=== PATIENT | male | born 1995 | race Caucasian/White ===

== ENCOUNTER 2017-03-23 13:22 | Emergency (ER) | payer SELFPAY ==
[~2017-03-23] VITALS: Ht 188 cm; Wt 82.0 kg
[~2017-03-23 13:22] MED LIST: AMOXICILLIN500 MG PO; ATIVAN0.5 MG PO; NAPROSYN500 MG PO; NO HOME MEDS; ZOFRAN ODT4 MG OR
[2017-03-23] MEDS ORDERED: BACTRIM DS1 TAB PO (14:15)
[2017-03-23] MEDS ORDERED: FLONASE AL50 MCG/ACT (14:15)
[2017-03-23] MEDS ORDERED: AFRIN 12 HOUR0.05 % (14:15)
[2017-03-23 14:25] VITALS: BP 121/82
== END 2017-03-23 14:25 | disposition home or self-care (01) | DRG 153 ==
LOC: ED 13:22
DX: J01.90 Acute sinusitis, unspecified (principal); F41.0 Panic disorder [episodic paroxysmal anxiety]; F17.290 Nicotine dependence, other tobacco product, uncomplicated

== ENCOUNTER 2018-08-22 09:48 | Emergency (ER) | payer SELFPAY ==
[~2018-08-22] VITALS: Ht 188 cm; Wt 75.0 kg
[~2018-08-22 09:48] MED LIST changes: +AFRIN 12 HOUR0.05 %; +BACTRIM DS1 TAB PO; +FLONASE AL50 MCG/ACT
[2018-08-22] MEDS ORDERED: MOTRIN400 MG PO ×2 (11:51→12:03)
[2018-08-22] MEDS ORDERED: HYDROCO/APAP1 TA9 PO (11:51)
[2018-08-22 12:00] VITALS: BP 110/64
== END 2018-08-22 12:00 | disposition home or self-care (01) | DRG 563 ==
LOC: ED 09:48
PROC: 2W3RX1Z Immobilization of Left Lower Leg using Splint (ICD-10-PCS; principal; 2018-08-22)
DX: S82.65XA Nondisplaced fracture of lateral malleolus of left fibula, initial encounter for closed fracture (principal); W13.3XXA Fall through floor, initial encounter; Y93.89 Activity, other specified; Y92.009 Unspecified place in unspecified non-institutional (private) residence as the place of occurrence of the external cause

== ENCOUNTER 2019-02-02 21:51 | Emergency (ER) | payer SELFPAY ==
[~2019-02-02] VITALS: Ht 188 cm; Wt 85.0 kg
[~2019-02-02 21:51] MED LIST changes: +HYDROCO/APAP1 TA9 PO; +MOTRIN400 MG PO
[2019-02-02 22:37] LABS: HEMOGLOBIN 14.7 g/dl (14.0-18.0); IMMATURE GRANULOCYTES 0.5 % (0.0-5.0); MEAN CORPUSCULAR HGB 30.2 pG CALC (26.0-32.0); NEUT# 9.05 thou/uL (1.82-7.42); RED BLOOD COUNT 4.86 mill/uL (4.70-6.10); RED CELL DISTRI WIDTH 12.4 % (11.5-15.5)
[2019-02-02 22:41] LABS: HEMATOCRIT 43.2 % (39.0-50.0); MEAN CELL VOLUME 88.9 fL CALC (80.0-100.0)
[2019-02-02 23:00] LABS: ANION GAP 18 (6-22 (CALC)); BILIRUBIN, TOTAL 0.9 mg/dL (0.0-1.4); BUN 12 mg/dL (9-20); BUN/CREATININE RATIO 15 (12-20 (CALC)); CARBON DIOXIDE 26 mmol/l (22-30); CHLORIDE 102 mmol/l (95-108); CREATININE 0.8 mg/dL (0.7-1.3); GFR > 60 ML/MIN (>=60 (CALC)); GFR FOR AFR.AMER. > 60 ML/MIN (>=60 (CALC)); POTASSIUM 4.3 mmol/l (3.5-5.1); SGOT/AST 24 u/l (17-59); SODIUM 141 mmol/l (137-146); TOTAL PROTEIN 8.7 g/dL (6.3-8.2)
[2019-02-02 23:03] LABS: ALKALINE PHOSPHATASE 64 u/l (38-126)
[2019-02-02] MEDS ORDERED: AMOXICILLIN500 MG PO (23:11)
[2019-02-02 23:20] VITALS: BP 130/59
== END 2019-02-02 23:20 | disposition home or self-care (01) | DRG 159 ==
LOC: ED 21:51
PROVIDERS: Emergency Medicine
DX: K08.89 Other specified disorders of teeth and supporting structures (principal); K08.409 Partial loss of teeth, unspecified cause, unspecified class

== ENCOUNTER 2024-03-28 04:23 | Emergency (ER) | payer SELFPAY ==
[~2024-03-28] VITALS: Ht 188 cm; Wt 87.0 kg
[~2024-03-28 04:23] MED LIST changes: +ONDANSETRON4 MG PO
[2024-03-28 05:13] LABS: BASO% 0.1 % (0-3); HEMATOCRIT 42.2 % (39.0-50.0); HEMOGLOBIN 14.8 g/dl (14.0-18.0); IMMATURE GRANULOCYTES 0.1 % (0.0-5.0); LYMPH% 15.3 % (15-41); MEAN CELL VOLUME 89.6 fL CALC (80.0-100.0); MEAN CORPUSCULAR HGB 31.4 pG CALC (26.0-32.0); MEAN CORPUSCULAR HGB CONC 35.1 g/dL CAL (32.0-36.0); MONO% 8.5 % (2-13); NEUT# 10.57 thou/uL (1.82-7.42); RED BLOOD COUNT 4.71 mill/uL (4.70-6.10); RED CELL DISTRI WIDTH 12.2 % (11.5-15.5)
[2024-03-28 05:21] LABS: ALBUMIN 4.8 g/dL (3.2-5.0); ALKALINE PHOSPHATASE 58 u/l (38-126); ANION GAP 12 (6-22 (CALC)); BUN 19 mg/dL (9-20); BUN/CREATININE RATIO 18 (12-20 (CALC)); CARBON DIOXIDE 22 mmol/l (22-30); CHLORIDE 109 mmol/l (95-108); CREATININE 1.1 mg/dL (0.7-1.3); ESTIMATED GFR 94 ML/MIN (>=90 (CALC)); ETHYL ALCOHOL 0 mg/dl (0-30); MAGNESIUM 1.8 mg/dL (1.6-2.3); POTASSIUM 3.8 mmol/l (3.5-5.1); SGOT/AST 37 u/l (17-59); SODIUM 139 mmol/l (137-146); TOTAL PROTEIN 8.4 g/dL (6.3-8.2)
[2024-03-28 05:24] LABS: BILIRUBIN, TOTAL 1.7 mg/dL (0.2-1.3)
[2024-03-28 05:46] LABS: URINE BLOOD DIPSTICK Small (NEGATIVE); URINE COLOR Yellow; URINE GLUCOSE - DIPSTICK Negative (NEGATIVE); URINE KETONE 40 mg/dL (NEGATIVE); URINE LEUK ESTERASE Negative (NEGATIVE); URINE NITRITE - DIPSTICK Negative (Negative); URINE PH 6.5 (4.5-8.0); URINE PROTEIN - DIPSTICK 30 mg/dL (NEG-TRACE)
[2024-03-28 05:50] LABS: URINE SQUAMOUS EPITHELIAL CELL FEW EPI/hpf (0-FEW); URINE WBC 0-2 WBC/hpf (0-5)
[2024-03-28 06:01] VITALS: BP 118/86
== END 2024-03-28 06:02 | disposition designated cancer center or children's hospital (05) | DRG 885 ==
LOC: ED 04:23
PROVIDERS: Family Medicine
DX: F22 Delusional disorders (principal); F19.10 Other psychoactive substance abuse, uncomplicated; Z20.822 Contact with and (suspected) exposure to COVID-19